=== PATIENT | male | born 1975 | race Caucasian/White ===

== ENCOUNTER 2023-05-08 09:45 | Emergency (ER) | payer OTHER | END 2023-05-08 11:42 | disposition home or self-care (01) | LOC: CSHERS 09:45 | DX: S22.32XA Fracture of one rib, left side, initial encounter for closed fracture (principal); J18.9 Pneumonia, unspecified organism; F17.200 Nicotine dependence, unspecified, uncomplicated; W14.XXXA Fall from tree, initial encounter | CPT/HCPCS: 71045 ==

== ENCOUNTER 2023-05-17 20:42 | Emergency (ER) | payer OTHER ==
[2023-05-17] MEDS ORDERED: Ketorolac Tromethamine 30 MG/ML VIAL ONE (22:56)
[2023-05-17] MEDS ORDERED: Doxycycline 100 MG CAP PO SCH (23:15)
== END 2023-05-17 23:46 | disposition home or self-care (01) ==
LOC: CSHERS 20:42
DX: J15.9 Unspecified bacterial pneumonia (principal); F17.200 Nicotine dependence, unspecified, uncomplicated
CPT/HCPCS: 71045; 96372; J1885